=== PATIENT | female | born 1985 | race African-American/Black ===

== ENCOUNTER 2016-11-05 15:02 | Observation (INO) | payer MEDICAID ==
[~2016-11-05] VITALS: Ht 182.9 cm; Wt 122.9 kg
[~2016-11-05 15:02] MED LIST: FERR-43 PO; FOLI-43 PO; POTA10CA42 PO; PREN-161 PO; PREN-88 PO
[2016-11-05 15:47] LABS: CLARITY URINE CLOUDY (CLEAR); COLOR URINE YELLOW (YELLOW); GLUCOSE URINE 1+ (NEGATIVE); KETONES URINE TRACE (NEGATIVE); LEUKOCYTE ESTERASE URINE 2+ (NEGATIVE); NITRITE URINE NEGATIVE (NEGATIVE); OCCULT BLOOD URINE NEGATIVE (NEGATIVE); PROTEIN URINE NEGATIVE (NEGATIVE); SPECIFIC GRAVITY URINE 1.032 (1.005-1.030)
[2016-11-05 16:05] LABS: BACTERIA URINE 2+; RBC URINE 0-2 /hpf (0-2); SQUAMOUS EPITHELIAL CELL URINE 2+ /lpf (RARE/1+)
[2016-11-05] MEDS ORDERED: LACTATED RINGERS 1,000 ML IV SCH (16:15)
[2016-11-05] MEDS ORDERED: CEFAZOLIN 2,000 MG in DEXT 5% WATER 100 ML IV NR (16:30)
== END 2016-11-05 18:25 | disposition home or self-care (01) ==
LOC: L&D 15:02
PROVIDERS: ADMIT Obstetrics & Gynecology; ATTEND Obstetrics & Gynecology
DX: O26.892 Other specified pregnancy related conditions, second trimester (principal); R10.30 Lower abdominal pain, unspecified; R10.2 Pelvic and perineal pain; M79.652 Pain in left thigh; M79.651 Pain in right thigh; Z3A.25 25 weeks gestation of pregnancy
CPT/HCPCS: 81001; 82962; 96365; 99281; G0378; J0690; J7120; 96360; 96361; J7060

== ENCOUNTER 2016-11-20 17:43 | Observation (INO) | payer MEDICAID ==
[~2016-11-20] VITALS: Ht 185.4 cm; Wt 117.0 kg
[~2016-11-20 17:43] MED LIST changes: -POTA10CA42 PO; -PREN-161 PO
[2016-11-20] MEDS ORDERED: LACTATED RINGERS 1,000 ML IV SCH (18:45)
[2016-11-20 20:01] LABS: BASOPHILS % 0.5 % (0.0-2.0); EOSINOPHILS % 3.2 % (0.0-5.0); HEMATOCRIT. 32.7 % (36.0-48.0); HEMOGLOBIN. 10.5 g/dL (12.0-16.0); LYMPHOCYTES % 32.5 % (20.0-50.0); MEAN CORPUSCULAR HEMOGLOBIN 26.8 pg (28.0-32.0); MEAN CORPUSCULAR HGB CONC 32.2 g/dL (31.0-37.0); MEAN CORPUSCULAR VOLUME 83.2 fL (81.0-99.0); MEAN PLATELET VOLUME 8.5 fl (7.4-10.4); MONOCYTES % 6.3 % (2.0-8.0); NEUTROPHILS % 57.5 % (40.0-76.0); PLATELET 374 x1000/uL (130-400); RED BLOOD CELL COUNT 3.93 mill/uL (4.2-5.4); RED CELL DISTRIBUTION WIDTH 16.6 % (11.6-14.6)
[2016-11-20 20:03] LABS: CLARITY URINE CLOUDY (CLEAR); COLOR URINE DARK YELLOW (YELLOW); GLUCOSE URINE TRACE (NEGATIVE); KETONES URINE TRACE (NEGATIVE); LEUKOCYTE ESTERASE URINE 2+ (NEGATIVE); NITRITE URINE NEGATIVE (NEGATIVE); OCCULT BLOOD URINE 2+ (NEGATIVE); PH URINE 6.5 (4.5-8.0); PROTEIN URINE TRACE (NEGATIVE)
[2016-11-20 20:20] LABS: BACTERIA URINE 2+; RBC URINE 0-2 /hpf (0-2); SQUAMOUS EPITHELIAL CELL URINE 2+ /lpf (RARE/1+)
[2016-11-20] MEDS ORDERED: CEFAZOLIN 2,000 MG in DEXT 5% WATER 100 ML IV NR (21:00)
== END 2016-11-20 22:10 | disposition home or self-care (01) ==
LOC: L&D 17:43
PROVIDERS: ADMIT Obstetrics & Gynecology; ATTEND Obstetrics & Gynecology
DX: O46.92 Antepartum hemorrhage, unspecified, second trimester (principal); O36.8120 Decreased fetal movements, second trimester, not applicable or unspecified; O62.9 Abnormality of forces of labor, unspecified; Z3A.27 27 weeks gestation of pregnancy
CPT/HCPCS: 36415; 76805; 76818; 81001; 85025; 96361; 96365; G0378; J0690; J7120; 96360; J7060

== ENCOUNTER 2016-12-28 19:25 | Observation (INO) | payer MEDICAID ==
[~2016-12-28] VITALS: Ht 182.9 cm; Wt 119.7 kg
== END 2016-12-28 20:40 | disposition home or self-care (01) ==
LOC: L&D 19:25
PROVIDERS: ADMIT Obstetrics & Gynecology; ATTEND Obstetrics & Gynecology
DX: O34.33 Maternal care for cervical incompetence, third trimester (principal); Z3A.33 33 weeks gestation of pregnancy
CPT/HCPCS: 99281; G0378

== ENCOUNTER 2017-01-25 02:40 | Observation (INO) | payer MEDICAID ==
[~2017-01-25] VITALS: Ht 182.9 cm; Wt 121.1 kg
[2017-01-25] MEDS ORDERED: LACTATED RINGERS 1,000 ML IV SCH (04:15)
[2017-01-25 04:47] LABS: CLARITY URINE CLEAR (CLEAR); COLOR URINE YELLOW (YELLOW); GLUCOSE URINE NEGATIVE (NEGATIVE); KETONES URINE NEGATIVE (NEGATIVE); LEUKOCYTE ESTERASE URINE TRACE (NEGATIVE); NITRITE URINE NEGATIVE (NEGATIVE); OCCULT BLOOD URINE 1+ (NEGATIVE); PROTEIN URINE NEGATIVE (NEGATIVE); SPECIFIC GRAVITY URINE 1.022 (1.005-1.030); UROBILINOGEN URINE 0.2 E.U./dL (0.2-1.0)
== END 2017-01-25 07:35 | disposition home or self-care (01) ==
LOC: L&D 02:40
PROVIDERS: ADMIT Obstetrics & Gynecology; ATTEND Obstetrics & Gynecology
DX: O46.93 Antepartum hemorrhage, unspecified, third trimester (principal); O21.2 Late vomiting of pregnancy; O26.893 Other specified pregnancy related conditions, third trimester; R19.7 Diarrhea, unspecified; R10.30 Lower abdominal pain, unspecified; Z3A.37 37 weeks gestation of pregnancy
CPT/HCPCS: 36415; 80051; 81001; 99281; G0378; J7120; 96360; 96361

== ENCOUNTER 2017-01-31 20:21 | Emergency (ER) | payer MEDICAID ==
[~2017-01-31] VITALS: Ht 185.4 cm; Wt 122.0 kg
[2017-01-31 21:17] VITALS: BP 151/96
[2017-01-31] MEDS ORDERED: ACETAMINOPHEN 325MG TABLET PO STA (21:56)
[2017-01-31 22:48] LABS: CLARITY URINE CLEAR (CLEAR); COLOR URINE YELLOW (YELLOW); GLUCOSE URINE NEGATIVE (NEGATIVE); KETONES URINE TRACE (NEGATIVE); LEUKOCYTE ESTERASE URINE NEGATIVE (NEGATIVE); NITRITE URINE NEGATIVE (NEGATIVE); OCCULT BLOOD URINE TRACE (NEGATIVE); PH URINE 5.5 (4.5-8.0); PROTEIN URINE TRACE (NEGATIVE); SPECIFIC GRAVITY URINE 1.034 (1.005-1.030)
[2017-01-31 22:48] LABS: BASOPHILS % 0.5 % (0.0-2.0); EOSINOPHILS % 1.8 % (0.0-5.0); HEMATOCRIT. 32.6 % (36.0-48.0); HEMOGLOBIN. 10.2 g/dL (12.0-16.0); MEAN CORPUSCULAR HEMOGLOBIN 25.7 pg (28.0-32.0); MEAN CORPUSCULAR VOLUME 81.9 fL (81.0-99.0); MEAN PLATELET VOLUME 8.5 fl (7.4-10.4); MONOCYTES % 5.9 % (2.0-8.0); NEUTROPHILS % 73.8 % (40.0-76.0); PLATELET 419 x1000/uL (130-400); RED BLOOD CELL COUNT 3.97 mill/uL (4.2-5.4); RED CELL DISTRIBUTION WIDTH 17.9 % (11.6-14.6)
[2017-01-31 22:54] LABS: CHLORIDE 104 mEq/L (98-107)
[2017-01-31 22:55] LABS: INR 0.9; PROTHROMBIN TIME 9.9 sec
[2017-01-31 22:56] LABS: CARBON DIOXIDE 26 mEq/L (21-32)
== END 2017-02-01 00:29 | disposition home or self-care (01) ==
LOC: ER 20:21
DX: O14.95 Unspecified pre-eclampsia, complicating the puerperium (principal); Z88.6 Allergy status to analgesic agent
CPT/HCPCS: 36415; 70450; 80053; 81001; 81025; 85025; 85610; 99285; Z7610

== ENCOUNTER 2017-05-27 11:59 | Emergency (ER) | payer MEDICAID ==
[~2017-05-27] VITALS: Ht 182.9 cm; Wt 120.0 kg
[2017-05-27 13:58] LABS: CLARITY URINE CLEAR (CLEAR); COLOR URINE YELLOW (YELLOW); GLUCOSE URINE NEGATIVE (NEGATIVE); KETONES URINE NEGATIVE (NEGATIVE); LEUKOCYTE ESTERASE URINE NEGATIVE (NEGATIVE); NITRITE URINE NEGATIVE (NEGATIVE); OCCULT BLOOD URINE 3+ (NEGATIVE); PROTEIN URINE NEGATIVE (NEGATIVE); SPECIFIC GRAVITY URINE 1.025 (1.005-1.030); UROBILINOGEN URINE 0.2 E.U./dL (0.2-1.0)
[2017-05-27 15:02] LABS: BASOPHILS % 0.6 % (0.0-2.0); EOSINOPHILS % 1.9 % (0.0-5.0); HEMATOCRIT. 33.7 % (36.0-48.0); LYMPHOCYTES % 35.4 % (20.0-50.0); MEAN CORPUSCULAR HEMOGLOBIN 27.2 pg (28.0-32.0); MEAN CORPUSCULAR VOLUME 83.5 fL (81.0-99.0); MEAN PLATELET VOLUME 7.5 fl (7.4-10.4); MONOCYTES % 6.3 % (2.0-8.0); NEUTROPHILS % 55.8 % (40.0-76.0); PLATELET 344 x1000/uL (130-400); RED BLOOD CELL COUNT 4.03 mill/uL (4.2-5.4); RED CELL DISTRIBUTION WIDTH 17.8 % (11.6-14.6)
[2017-05-27 15:09] LABS: CHLORIDE 106 mEq/L (98-107)
[2017-05-27 15:12] LABS: CARBON DIOXIDE 28 mEq/L (21-32); PROTHROMBIN TIME 10.2 sec (9.4-11.6)
[2017-05-27] MEDS ORDERED: ACETAMINOPHEN WITH CODEINE 300/30MG TABLET PO ONE (15:30)
[2017-05-27 15:35] LABS: HCG SCREEN NEGATIVE
[2017-05-27 17:21] VITALS: BP 116/70
== END 2017-05-27 17:24 | disposition home or self-care (01) ==
LOC: ER 13:19
DX: K80.20 Calculus of gallbladder without cholecystitis without obstruction (principal); K76.0 Fatty (change of) liver, not elsewhere classified; G43.909 Migraine, unspecified, not intractable, without status migrainosus; Z88.6 Allergy status to analgesic agent; Z91.041 Radiographic dye allergy status
CPT/HCPCS: 36415; 76705; 80053; 81001; 83690; 84703; 85025; 85610; 99285; Z7610

== ENCOUNTER 2017-09-15 18:29 | Emergency (ER) | payer MEDICAID ==
[~2017-09-15] VITALS: Ht 185.4 cm; Wt 118.0 kg
[2017-09-16] MEDS ORDERED: ONDANSETRON 4MG ODT PO ONE (02:00)
[2017-09-16] MEDS ORDERED: FAMOTIDINE 20MG TABLET PO ONE (02:00)
[2017-09-16] MEDS ORDERED: MAGNESIUM/ALUMINUM HYDROXIDE/SIMETHICONE 30ML UDC PO ONE (02:00)
[2017-09-16] MEDS ORDERED: ACETAMINOPHEN 500MG TABLET PO ONE (02:00)
[2017-09-16 02:29] LABS: BASOPHILS % 0.8 % (0.0-2.0); EOSINOPHILS % 2.1 % (0.0-5.0); HEMATOCRIT. 34.2 % (36.0-48.0); HEMOGLOBIN. 10.7 g/dL (12.0-16.0); LYMPHOCYTES % 42.8 % (20.0-50.0); MEAN CORPUSCULAR HEMOGLOBIN 25.4 pg (28.0-32.0); MEAN CORPUSCULAR VOLUME 80.9 fL (81.0-99.0); MONOCYTES % 6.1 % (2.0-8.0); NEUTROPHILS % 48.2 % (40.0-76.0); PLATELET 436 x1000/uL (130-400); RED BLOOD CELL COUNT 4.22 mill/uL (4.2-5.4)
[2017-09-16 02:39] LABS: CHLORIDE 104 mEq/L (98-107)
[2017-09-16 02:47] LABS: CLARITY URINE CLOUDY (CLEAR); COLOR URINE ORANGE (YELLOW); KETONES URINE TRACE (NEGATIVE); LEUKOCYTE ESTERASE URINE 1+ (NEGATIVE); NITRITE URINE NEGATIVE (NEGATIVE); OCCULT BLOOD URINE 3+ (NEGATIVE); PH URINE 5.5 (4.5-8.0); PROTEIN URINE 2+ (NEGATIVE); SPECIFIC GRAVITY URINE 1.031 (1.005-1.030)
[2017-09-16 05:08] VITALS: BP 121/79
== END 2017-09-16 05:10 | disposition home or self-care (01) ==
LOC: ER 22:01
DX: N39.0 Urinary tract infection, site not specified (principal); R10.13 Epigastric pain; G43.909 Migraine, unspecified, not intractable, without status migrainosus; Z88.6 Allergy status to analgesic agent; Z91.041 Radiographic dye allergy status
CPT/HCPCS: 36415; 76705; 80053; 81003; 83690; 85025; 87077; 87086; 99285; Q0162

== ENCOUNTER 2018-02-11 17:29 | Emergency (ER) | payer MEDICAID ==
[~2018-02-11] VITALS: Ht 185.4 cm; Wt 170.0 kg
[2018-02-11 17:55] VITALS: BP 135/96
== END 2018-02-12 01:00 | disposition left against medical advice (07) ==
LOC: ER 17:29
DX: M54.2 Cervicalgia (principal); M54.9 Dorsalgia, unspecified; R51 Headache
CPT/HCPCS: 99281

== ENCOUNTER 2021-01-19 19:51 | Emergency (ER) | payer MEDICAID ==
[~2021-01-19] VITALS: Ht 185.4 cm; Wt 147.0 kg
[2021-01-19] MEDS ORDERED: SODIUM CHLORIDE 0.9% 250 ML IV ONE (21:45)
[2021-01-19] MEDS ORDERED: ALBUTEROL 6.7GM HFA INHALER ORI ONE (21:45)
[2021-01-19] MEDS ORDERED: ACETAMINOPHEN 325MG TABLET PO ONE (21:45)
[2021-01-19 22:04] LABS: BASOPHILS % 0.8 % (0.0-2.0); HEMATOCRIT. 38.4 % (36.0-48.0); HEMOGLOBIN. 12.3 g/dL (12.0-16.0); MEAN CORPUSCULAR HEMOGLOBIN 26.5 pg (28.0-32.0); MEAN CORPUSCULAR VOLUME 82.5 fL (81.0-99.0); MEAN PLATELET VOLUME 8.3 fl (7.4-10.4); MONOCYTES % 9.7 % (2.0-8.0); NEUTROPHILS % 68.5 % (40.0-76.0); PLATELET 405 x1000/uL (130-400); RED BLOOD CELL COUNT 4.66 mill/uL (4.2-5.4)
[2021-01-19 22:12] LABS: CHLORIDE 104 mEq/L (98-107)
[2021-01-19 22:20] LABS: HCG SCREEN NEGATIVE
[2021-01-19] MEDS ORDERED: DEXAMETHASONE 10 MG/ML VIAL IV NR (22:45)
[2021-01-19] MEDS ORDERED: SODIUM CHLORIDE 0.9% 500 ML IV ONE (23:30)
[2021-01-19] MEDS ORDERED: DIPHENHYDRAMINE 50MG/ML VIAL IV ONE (23:30)
[2021-01-20] MEDS ORDERED: ALBU18HF2 IH (00:03)
[2021-01-20 00:25] VITALS: BP 132/71
== END 2021-01-20 00:30 | disposition home or self-care (01) ==
LOC: ER 19:51
DX: U07.1 COVID-19 (principal); E11.9 Type 2 diabetes mellitus without complications; I49.9 Cardiac arrhythmia, unspecified; Z88.6 Allergy status to analgesic agent; Z79.899 Other long term (current) drug therapy
CPT/HCPCS: 36415; 70490; 71045; 71250; 80053; 81025; 82728; 84703; 85025; 85384; 86140; 93005; 94640; 96361; 96374; 96375; 99285; C9803; J1100; J1200; J7030; J7040; U0003; U0005; Z7610

== ENCOUNTER 2023-02-06 01:47 | Emergency (ER) | payer MEDICAID, OTHER ==
[~2023-02-06] VITALS: Ht 182.9 cm; Wt 124.0 kg
[~2023-02-06 01:47] MED LIST changes: +ALBU18HF2 IH
[2023-02-06 01:57] VITALS: O2SAT 100
[2023-02-06 03:56] LABS: CLARITY URINE CLOUDY (CLEAR); COLOR URINE YELLOW (YELLOW); GLUCOSE URINE NEGATIVE (NEGATIVE); KETONES URINE NEGATIVE (NEGATIVE); LEUKOCYTE ESTERASE URINE 1+ (NEGATIVE); NITRITE URINE NEGATIVE (NEGATIVE); OCCULT BLOOD URINE NEGATIVE (NEGATIVE); PROTEIN URINE NEGATIVE (NEGATIVE); UROBILINOGEN URINE 0.2 E.U./dL (0.2-1.0)
[2023-02-06 04:35] LABS: RBC URINE 0-2 /hpf (0-2)
[2023-02-06 04:36] LABS: BACTERIA URINE TRACE; SQUAMOUS EPITHELIAL CELL URINE 1+ /lpf (RARE/1+)
[2023-02-06] MEDS ORDERED: ACETAMINOPHEN WITH CODEINE 300/30MG TABLET PO STA (05:32)
[2023-02-06 06:01] VITALS: BP 167/104
[2023-02-06] MEDS ORDERED: TOPUD MT (06:13)
[2023-02-06] MEDS ORDERED: CEPH500C2 MT (06:13)
[2023-02-06 06:15] VITALS: PULSE 99; RESP 16; TEMP 98.4
== END 2023-02-06 06:20 | disposition home or self-care (01) ==
LOC: ER 01:47
DX: R51.9 Headache, unspecified (principal); N30.00 Acute cystitis without hematuria; E11.9 Type 2 diabetes mellitus without complications; Z79.899 Other long term (current) drug therapy; Z88.6 Allergy status to analgesic agent
CPT/HCPCS: 81003; 81025; 99284